=== PATIENT | male | born 1950 | race Caucasian/White ===

== ENCOUNTER → 2025-07-03 | Outpatient (CLI) | payer OTHER, SELFPAY ==
--- OUTSIDE RECORDS SUMMARY | 2025-07-03 06:28 | XMS RPT_ITS | CCD ---
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 Name Role Phone Real Cartagena Attending Unavailable Jayna Waldron Referring Unavailable Jayna Waldron Primary Care Unavailable Jayna Waldron Primary Care Unavailable MitziKodak hansenril Referring Unavailable Real Cartagena Attending Unavailable Allergies Allergy Classification Reported Allergen(s) Allergy Type Date of Onset Reaction(s) Facility (1 source) oxyCODONE Drug Allergy 04-01-2025 [facility] Repository Problems Problem Classification Problem Date Documented Date Episodic/Chronic Conduction disorders (1 source) Left bundle-branch block, unspecified; Translations: [Left bundle-branch block, unspecified] Onset: 04-01-2025 Chronic Coronary atherosclerosis and other heart disease (2 sources) Atherosclerotic heart disease of [place] coronary artery without angina pectoris; Translations: [Atherosclerotic heart disease of [place] coronary artery without angina pectoris] Onset: 04-01-2025 Chronic Disorders of lipid metabolism (1 source) Hyperlipidemia, unspecified; Translations: [Hyperlipidemia, unspecified] Onset: 04-01-2025 Chronic Essential hypertension (1 source) Essential (primary) hypertension; Translations: [Essential (primary) hypertension] Onset: 04-01-2025 Chronic Heart valve disorders (2 sources) Nonrheumatic aortic (valve) stenosis; Translations: [Nonrheumatic aortic (valve) stenosis] Onset: 04-01-2025 Chronic Pulmonary heart disease (1 source) Pulmonary hypertension, unspecified; Translations: [Pulmonary hypertension, unspecified] Onset: 04-01-2025 Chronic Results Test Name Value Interpretation Reference Range Facility 12 Lead EKG performed by [facility] on 04-01-2025 12 Lead EKG performed by [address] [address] [place] [address] 12 Lead EKG performed by [facility] 04/01/25 0843 MR#: [id number] Acct: [id number] Name: KATHY DE SANTIAGO JR Rep #: [id number] : 1950 75 From: Real Cartagena MD Attending Dr: Dr. Real Cartagena MD Status: DEP A MB Ordering Dr: Real Cartagena MD Date: 04/01/25 [place] [facility] [place]: M C Admitted: BMS/12 Lead EKG performed by [facility] ECG Report Interpretation Sinus Bradycardia - frequent multiform ectopic ventricular beats # VECs = 2, # types 2BORDERLINE RHYTHMElectronically signed on 04/07/2025 at 08:19 by Real Cartagena [employer] Version 8610 04/07/2521 Date Real Cartagena MD CC: GEOSPATIAL SPECIALIST-C Jayna Waldron Date Dictated: 04/01/25842 Date Transcribed: 04/01/25842 Customer Counter Associate: [place] Signed Normal [facility] Cardiology Visit Reporton Cardiology Visit Report [facility] [address] [place] [address] OFFICE VISIT Date of Service: 04/01/25 MR#: [id number] Acct: [id number] Name: KATHY DE SANTIAGO JR Rep #: [id number] : 1950 Provider: Dr. Real Cartagena MD Age/Sex: 75/M [place] [facility] [place] Status: Signed HPI HPI History of Present Illness Details: 75-year-old man who is relocating from [place] with a history of coronary artery disease status post percutaneous angioplasty and stenting of the right coronary artery in 2002 in [place]. He is also noted to have a history of aortic valve stenosis which is mild as well as pulmonary hypertension. He denies any chest pain or shortness of breath or paroxysmal nocturnal dyspnea or pedal edema has had no neck arm or jaw discomfort to suggest angina. He has been compliant with all his medications and says that he has established primary care at the [facility]. According to the notes his last echocardiogram demonstrated aortic sclerosis mild LVH EF of 60% and pulmonary pressure of 38 mmHg. His physical exam demonstrates clear lung lepe regular rate and rhythm no pedal edema is soft 1/6 systolic murmur noted left sternal border. EKG demonstrates sinus bradycardia with a rate of 55 bpm and no acute changes. 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 Accompanied by: Significant Other Is patient in pain?: No Allergies oxycodone Allergy (Intermediate, Verified 04/01/25 09:04) nausea and vomiting Medications ???Medication ???Instructions ???Recorded ???Confirmed ???Type aspirin 81 mg tablet,delayed 81 mg PO QDAY 02/24/25 04/01/25 Hi story release (Adult Aspirin Regimen) cholecalciferol (vitamin D3) 25 25 mcg PO QDAY 02/24/25 04/01/25 H istory mcg (1,000 unit) capsule lisinopril 5 mg tablet 5 mg PO QDAY 02/24/25 04/01/25 His tory metoprolol tartrate 50 mg tablet 25 mg PO QDAY 02/24/25 04/01/25 Hi story simvastatin 40 mg tablet 40 mg PO QDAY 02/24/25 04/01/25 Hi story Have you fallen in the past year?: Yes PFSH Medical History Pulmonary hypertension Left bundle branch block GERD (gastroesophageal reflux disease) Aortic valve stenosis Hyperlipidemia History of kidney stones Essential (primary) hypertension CAD (coronary artery disease) Surgical History History of percutaneous coronary intervention History of hip replacement Family History Son Myocardial infarction Social History Smoking Status: Former smoker alcohol intake: never substance use type: does not use ROS Const Const: Negative for fatigue, weakness, headache(s), daytime sleepiness or difficulty sleeping ENT ENT: Negative for headache(s), dizziness or Nosebleed/epistaxis Cardio Chest Pain: No Palpitations: No Edema: None Resp Respiratory: Positive for SOB with activity; Negative for SOB at rest, SOB orthopnea SOB lying down or Cough GI GI: Negative nausea, vomiting or heartburn Neuro Neuro: Negative for dizziness, lightheadedness, near syncope, headache(s) or weakness Endo Endo: Negative for fatigue Cardiology Exam Const Appearance: cooperative, healthy appearing, no acute distress, well developed and well groomed Nutritional Appearance: average body habitus and well nourished Orientation: alert, awake and oriented x3 Head Head: normal to inspection, normocephalic and atraumatic Ears: hearing grossly normal bilaterally and external ears normal Nose: external nose normal, nares normal, nasal mucous membranes and turbinates normal, septum normal and no nasal discharge Face and Sinus: face symmetric Mouth: oral mucosae normal, tongue normal, oropharynx normal and moist mucous membranes Teeth and gingiva: dentition normal Throat: posterior oropharynx normal, tonsils normal and uvula midline Eyes General: appearance normal, both eyes and all related structures Eyelids: eyelids normal Conjunctivae: conjunctivae normal Pupils: PERRL, normal by confrontation and accommodation normal EOM: EOM intact bilaterally Neck Neck: normal visual inspection, trachea midline and no JVD JVD: +5 Carotids: normal carotid upstroke and bounding pulses Chest Chest inspection: normal inspection of the chest, symmetric chest movement and normal respiratory effort Auscultation: Bilateral: Clear to Auscultation Cardio Palpation: normal PMI (more content not included)... Normal [facility] Encounters Encounter Date Encounter Type Care Provider Facility Start: 07-03-2025 ambulatory Jayna Waldron Facility:[facility] Start: 04-01-2025 End: 04-01-2025 ambulatory Real Cartagena Facility:[facility] Payers Date Payer Category Payer Unknown [id number] 2025 Medicare [id number] 2025 Self-pay Unknown [id number] Unknown [id number] Summary Purpose Family History No Family History Records Found Advance Directives No Advanced Directives Records Found Additional Source Comments (unrecognized sect ion and content) No Status Records Found INFORMATION SOURCE (unrecogn ized section and content) DATE CREATED AUTHOR 06/11/2025 [facility] FOR RECORDS PERTAINING TO PATIENTS WHO ARE OR HAVE BEEN ENROLLED IN A CHEMICAL DEPENDENCY/SUBSTANCEABUSE PROGRAM, SOME INFORMATION MAY BE OMITTED. This clinical summary was aggregated from multiple sources. Caution should be exercised in using it in the provision of clinical care. This summary normalizes information from multiple sources, and as a consequence, information in this document may materially change the coding, format and clinical context of patient data. In addition, data may be omitted in some cases. CLINICAL DECISIONS SHOULD BE BASED ON THE PRIMARY CLINICAL RECORDS. [facility]. provides no warranty or guarantee of the accuracy or completeness of information in this document.
--- OUTSIDE RECORDS SUMMARY | 2025-07-03 06:28 | XMS RPT_ITS | CCD ---
Author Organization [facility] CliniSyla Care Team Providers Care Hammer Driver Name Role Phone Real Cartaegna Attending Unavailable Jayna Waldron Referring Unavailable Jayna Waldron Primary Care Unavailable Jayna Waldron Primary Care Unavailable MitziKodak hansenril Referring Unavailable Real Cartagena Attending Unavailable Allergies Allergy Classification Reported Allergen(s) Allergy Type Date of Onset Reaction(s) Facility (1 source) oxyCODONE Drug Allergy 04-01-2025 [facility] Repository Problems Problem Classification Problem Date Documented Date Episodic/Chronic Conduction disorders (1 source) Left bundle-branch block, unspecified; Translations: [Left bundle-branch block, unspecified] Onset: 04-01-2025 Chronic Coronary atherosclerosis and other heart disease (2 sources) Atherosclerotic heart disease of [place] coronary artery without angina pectoris; Translations: [Atherosclerotic heart disease of [place] coronary artery without angina pectoris] Onset: 04-01-2025 [...] Range Facility 12 Lead EKG performed by [facility] on 04-01-2025 12 Lead EKG performed by [address] [address] [place] [address] 12 Lead EKG performed by [facility] 04/01/25 0843 MR#: [id number] Acct: [id number] Name: KATHY DE SANTIAGO JR Rep #: [id number] : 1950 75 From: Real Cartagena MD Attending Dr: Dr. Real Cartagena MD Status: DEP A MB Ordering Dr: Real Cartagena MD Date: 04/01/25 Location: [facility] [place] Sex: M C Admitted: BMS/12 Lead EKG performed by [facility] ECG Report Interpretation Sinus Bradycardia - frequent multiform ectopic ventricular beats # VECs = 2, # types 2BORDERLINE RHYTHMElectronically signed on 04/07/2025 at 08:19 by Real Cartagena [employer] Software Version 8610 04/07/2521 Date Real Cartagena MD CC: MACHINE WELDER-C Jayna Waldron Date Dictated: 04/01/25842 Date Transcribed: 04/01/25842 Ecommerce Merchandising Manager: [place] Signed Normal [facility] Cardiology Visit Reporton Cardiology Visit Report [facility] [address] [place] [address] OFFICE VISIT Date of Service: 04/01/25 MR#: [id number] Acct: [id number] Name: KATHY DE SANTIAGO JR Rep #: [id number] : 1950 Provider: Dr. Real Cartagena MD Age/Sex: 75/M Location: [facility] [place] Status: Signed HPI HPI History of Present Illness Details: 75-year-old man who is relocating from [place] with a history of coronary artery disease status post percutaneous angioplasty and stenting of the right coronary artery in 2002 in [place]. He is also noted to have a [...] he has established primary care at the [facility]. 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 Normal [facility] Encounters Encounter Date Encounter Type Care Provider Facility Start: 07-03-2025 ambulatory Jayna Waldron Facility:[facility] Start: 04-01-2025 End: 04-01-2025 ambulatory Real Cartagena Facility:[facility] Payers Date Payer Category Payer Unknown [id number] 2025 Medicare [id number] 2025 Self-pay Unknown [id number] Unknown [id number] Summary Purpose Family History No Family History Records Found Advance Directives No Advanced Directives Records Found Additional Source Comments (unrecognized sect ion and content) No Status Records Found INFORMATION SOURCE (unrecogn ized section and content) DATE CREATED AUTHOR 06/11/2025 [facility] FOR RECORDS PERTAINING TO PATIENTS WHO [...] BE BASED ON THE PRIMARY CLINICAL RECORDS. [facility]. provides no warranty or guarantee of the accuracy or completeness of information in this document.
--- NOTE | 2025-07-03 06:31 | ECHOD_ITS ---
Reason For Study Reason For Study: MURMUR Procedure This was a 2D Doppler, Color Flow transthoracic echocardiogram. Exam performed in department. Left Ventricle Normal LV size. Left ventricular systolic function is normal. The left ventricular ejection fraction is 60 %. Stage 1 diastolic dysfunction. No regional wall motion abnormalities noted. Right Ventricle Normal RV size. Normal systolic function. Atria Normal left atrium. Normal right atrium. Mitral Valve Normal mitral valve. Tricuspid Valve Normal tricuspid valve. Mild (1+) tricuspid valve insufficiency. Pulmonary artery systolic pressure is 38 mmHg. Aortic Valve Trisinus/trileaflet aortic valve. Great Vessels Normal aortic root. The pulmonary artery is normal size. Inferior vena cava collapse with respiration. Pericardium/Pleural No pericardial effusion. MMode/2D Measurements & Calculations LVIDd: 4.7 cm IVSd: 1.2 cm Ao root diam: 3.3 cm LVIDs: 3.5 cm LVPWd: 1.0 cm FS: 25.5 % LAV(MOD-bp): 51.7 ml LVAd ap4: 29.2 cm2 SV(MOD-sp4): 46.3 ml LAV(MOD-bp) Indexed: 25.9 ml/m2 LVLd ap4: 8.8 cm SI(MOD-sp4): 23.2 ml/m2 LAV(MOD-sp2): 44.4 ml EDV(MOD-sp4): 80.6 ml LAV(MOD-sp4): 57.0 ml EDV(sp4-el): 82.8 ml LVAs ap4: 16.2 cm2 LVLs ap4: 6.6 cm ESV(MOD-sp4): 34.3 ml ESV(sp4-el): 33.8 ml EF(MOD-sp4): 57.5 % EF(sp4-el): 59.2 % SV(sp4-el): 49.0 ml LA dimension(2D): 4.4 cm LA A4 area: 20.1 cm2 RA A4 area: 11.0 cm2 Time Measurements MV dec time: 0.21 sec Doppler Measurements & Calculations MV E max steve: 57.4 cm/sec Lat Peak E' Steve: 10.0 cm/sec Med Peak E' Steve: 7.4 cm/sec MV A max steve: 94.1 cm/sec E/E' lat: 5.7 E/E' med: 7.7 MV E/A: 0.61 MV V2 max: 92.9 cm/sec Ao V2 max: 96.2 cm/sec MV max P.5 mmHg MV dec slope: 274.9 cm/sec2 Ao max P.7 mmHg MV V2 mean: 50.8 cm/sec Ao V2 mean: 64.0 cm/sec MV mean P.2 mmHg Ao mean P.9 mmHg MV V2 VTI: 39.3 cm Ao V2 VTI: 27.9 cm AV (velocity ratio): 0.95 LV V1 max: 91.5 cm/sec PA V2 max: 80.7 cm/sec TR max steve: 291.6 cm/sec LV V1 max P.3 mmHg PA V2 mean: 56.4 cm/sec TR max P.0 mmHg LV V1 mean P.7 mmHg LV V1 mean: 61.8 cm/sec LV V1 VTI: 26.6 cm ECHO/Echo Complete Interpretation Summary Normal LV size. Left ventricular systolic function is normal. The left ventricular ejection fraction is 60 %. Stage 1 diastolic dysfunction. Ordering Physician: Real Cartagena Referring Physician: Real Cartagena Performed By: Rhiannon Graham and Student
--- NOTE | 2025-07-06 19:01 | STRESSREP ---
Stress Test Report Pharmacologic myocardial perfusion stress test. 75-year-old man with a history of coronary disease Resting EKG demonstrates sinus bradycardia with a rate of 43 bpm. Resting blood pressure is 108/64 mmHg. 0.4 mg of regadenoson was infused per usual protocol followed by rapid intravenous saline flush injection. Continuous EKG monitoring was performed. The maximum heart rate was 67 bpm which was 46% of max impacted heart rate the maximum workload was 1 metabolic equivalent. At rest there were no ST or T wave changes noted to suggest ischemia and at peak infusion nonspecific ST changes were noted which did not meet the criteria for ischemia. No clinical angina is noted. The final blood pressure was 108/60 mmHg. Myocardial perfusion protocol. 12.0 mCi of technetium 99m sestamibi was injected at rest. 0.4 mg of regadenoson was infused per usual protocol. At peak infusion 35.7 mCi of technetium 99m sestamibi was injected stress images were obtained stress and rest images were reconstructed and compared in the short axis vertical long and horizontal long axis. Gated images were also obtained. Perfusion SPECT analysis: Review of the stress images demonstrate normal uptake of tracer noted in all areas of the myocardium. The resting images similar demonstrated normal uptake of tracer noted in all areas of the myocardium. No areas of reversibility are noted to suggest ischemia and no previous infarct is noted. Gated SPECT analysis: The gated ejection fraction is 63%. Conclusion: Normal pharmacologic myocardial perfusion stress test. Preserved ejection fraction.
== END | disposition home or self-care (01) ==
PROVIDERS: PCP Nurse Practitioner Family; Referring Provider Internal Medicine Cardiovascular Disease; Visit Provider Internal Medicine Cardiovascular Disease
DX: I25.10 Atherosclerotic heart disease of native coronary artery without angina pectoris (principal); I35.0 Nonrheumatic aortic (valve) stenosis
CPT/HCPCS: 78452; 93017; 93306; A9500; A4216; J2785